=== PATIENT | female | born 1970 | race Caucasian/White ===

== ENCOUNTER → 2017-04-13 | Day surgery (SDC) | payer BC ==
[~2017-04-13] VITALS: Ht 165.1 cm; Wt 74.2 kg
[~2017-04-13] MED LIST: ARTIFICIAL TEAR15 ML OPHTH; BACTRIM DS1 TAB PO; GENTAMICIN15 GM TOP; HYDROCODON-ACE1 EAC4 PO; LASIX20 MG PO; MICROZIDE12.5 MG PO; PERCOCET 5-3251 EACH PO; PROTONIX40 MG PO; TYLENOL EXTRA500 MG PO
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
--- NOTE | 2017-04-13 15:10 | NUR ---
D: Patient transferred from phase I to [facility] 1040. Report from Maria M ESTES. Denies nausea, but asking about nausea meds D: ([id number]) Dr Abreu at bedside. Check eye movement and post op instructions. I: Crackers given. Patient worried about getting sick.
== END ==
LOC: GPOC 04-12 14:00 → GSDC 07:00
PROC: 0NSQ0ZZ Reposition Left Orbit, Open Approach (ICD-10-PCS; principal; 2017-04-13)
PROC: 0NUQ0JZ Supplement Left Orbit with Synthetic Substitute, Open Approach (ICD-10-PCS; 2017-04-13)
DX: S02.32XA Fracture of orbital floor, left side, initial encounter for closed fracture (principal); I10 Essential (primary) hypertension; K21.9 Gastro-esophageal reflux disease without esophagitis; J30.1 Allergic rhinitis due to pollen; Z88.5 Allergy status to narcotic agent; Z87.891 Personal history of nicotine dependence; Z90.49 Acquired absence of other specified parts of digestive tract; Z98.84 Bariatric surgery status; Z79.891 Long term (current) use of opiate analgesic; Z79.899 Other long term (current) drug therapy
CPT/HCPCS: J0690; J1100; J1170; J2001; J2405; J3010; J7120